=== PATIENT | female | born 1995 | race Caucasian/White ===

== ENCOUNTER 2016-08-26 21:04 | Emergency (ER) | payer OTHER ==
--- NOTE | ~2016-08-26 | CT71 ---
[facility] A Service of [facility] RADIOLOGY TEXT RESULTS PATIENT: AMMY GARCIA LOCATION: [facility] : [birth year] UNIT #: [id number] AGE: [address]: Kyle Heaton MD SEX: F ORDER DR: [id number] [facility] [address] [place], [place] [address] [id number] E MR#: [id number] Acc #: [id number] NAME: AMMY GARCIA : 1995 SEX: F STUDY DATE/TIME: 08/26/2016 21:03 UNIT: [facility] ROOM: STUDY DESCRIPTION: CT Head Wo Contrast Attending Physician: Kyle Heaton M.D. Ordering Physician: Kyle Heaton M.D. Primary Care Physician: Primary Care Physician No MEDICAL IMAGING REPORT This report is preliminary unless electronic signature is present EXAM CT brain without contrast HISTORY Fell and hit head 2 days ago. Headache. Left side pain. This CT exam was performed with one or more of the following radiation dose reduction techniques: automatic exposure control, adjustment of mA and/or kV according to patient size, and iterative reconstruction. FINDINGS Axial noncontrast images were obtained from the skull base to the vertex. Ventricular size and configuration are normal. There is no evidence of acute infarct or hemorrhage. There are no extra-axial fluid collections. No mass lesion or mass effect is seen. There are no skull fractures. IMPRESSION Normal noncontrast head CT. Dictated by... Osito Chavez M.D. THIS IS AN ELECTRONICALLY VERIFIED REPORT Osito Chavez M.D. at 08/27/2016 1:56 PM RONALD/shane TD: 08/27/2016 02:47 JOB #: [id number] MEDICAL IMAGING REPORT Page 1 of 1 COPY
== END 2016-08-26 22:18 | disposition home or self-care (01) ==
LOC: CED 21:04
DX: S06.0X9A Concussion with loss of consciousness of unspecified duration, initial encounter (principal); W19.XXXA Unspecified fall, initial encounter; Y92.009 Unspecified place in unspecified non-institutional (private) residence as the place of occurrence of the external cause
CPT/HCPCS: 70450; 84703; 99284